=== PATIENT | female | born 1980 | race Caucasian/White ===

== ENCOUNTER → 2016-04-10 | Outpatient (CLI) | payer OTHER ==
[~2016-04-10] MED LIST: CGN1 PO; CITA10TA8 PO; HYDR50CA2 PO; IBUP-1050 PO; IBUP-1451 PO; LEVOIUD IU; METH10CO11 PO; MRP5 PO; MULT-513 PO; NRN600 PO; PROM25TA9 PO
--- NOTE | 2016-04-10 13:38 | DIAGNOSTIC IMAGING REPORT ---
RIGHT FOOT MIN 3 VIEWS ROUTINE CLINICAL HISTORY: Right foot pain status post trauma COMPARISON: None. DISCUSSION: There is a comminuted fracture involving the proximal phalanx of the fifth toe. No additional fractures are visualized. There is no dislocation. There is a plantar calcaneal spur. IMPRESSION: Comminuted minimally displaced fracture involving the proximal phalanx of the fifth toe Electronically signed by: Baron Bates M.D. 04/10/2016 1:37 PM Dictated Date/Time: 04/10/2016 1:35 PM
== END | disposition home or self-care (01) ==
LOC: C.RADPV 12:58
PROVIDERS: ATTEND Family Medicine
DX: S92.511A Displaced fracture of proximal phalanx of right lesser toe(s), initial encounter for closed fracture (principal); X58.XXXA Exposure to other specified factors, initial encounter

== ENCOUNTER 2016-05-11 16:30 | Emergency (ER) | payer OTHER ==
[~2016-05-11] VITALS: Ht 170.2 cm; Wt 90.0 kg
[~2016-05-11 16:30] MED LIST changes: -CGN1 PO; -CITA10TA8 PO; -HYDR50CA2 PO; -IBUP-1050 PO; -LEVOIUD IU; -METH10CO11 PO; -MRP5 PO; -MULT-513 PO; -NRN600 PO; -PROM25TA9 PO
[2016-05-11 16:32] VITALS: TEMP 37; Ht 170.2 cm; Wt 90.0 kg
[2016-05-11] MEDS ORDERED: OXYCODONE/ACETAMINOPHEN 5-325 TAB PO STA (16:48)
[2016-05-11] MEDS ORDERED: ONDANSETRON 4MG OD TAB PO STA (16:48)
--- NOTE | 2016-05-11 17:26 | DIAGNOSTIC IMAGING REPORT ---
LEFT ANKLE MIN 3 VIEWS ROUTINE CLINICAL HISTORY: Foot pain and ankle pain s/p fall trauma. Pain. COMPARISON: None. DISCUSSION: The bones and joint spaces appear intact. There is no evidence of fracture, dislocation or bony disease. There is no evidence for soft tissue swelling. IMPRESSION: Negative study. Electronically signed by: Elan Zapien M.D. 05/11/2016 5:25 PM Dictated Date/Time: 05/11/2016 5:24 PM
--- NOTE | 2016-05-11 17:27 | DIAGNOSTIC IMAGING REPORT ---
LEFT FOOT MIN 3 VIEWS ROUTINE CLINICAL HISTORY: Foot pain and ankle pain s/p fall COMPARISON: None. DISCUSSION: The bones and joint spaces appear intact. There is no evidence of fracture, dislocation or bony disease. There is no evidence for soft tissue swelling. IMPRESSION: Negative study. Electronically signed by: Elan Zapien M.D. 05/11/2016 5:25 PM Dictated Date/Time: 05/11/2016 5:25 PM
--- NOTE | 2016-05-11 17:28 | DIAGNOSTIC IMAGING REPORT ---
RIGHT FOOT MIN 3 VIEWS ROUTINE CLINICAL HISTORY: Foot pain and ankle pain s/p fall Right pain COMPARISON: None. DISCUSSION: Comminuted fracture proximal phalanx fifth toe. This shows partial interval healing compared to the prior exam. Mild associated soft tissue edema. No new or progressive findings. Heel spur is present. There is no evidence for soft tissue swelling. IMPRESSION: Healing fracture proximal phalanx fifth toe. No new or interval finding Electronically signed by: Elan Zapien M.D. 05/11/2016 5:27 PM Dictated Date/Time: 05/11/2016 5:26 PM
--- NOTE | 2016-05-11 17:28 | DIAGNOSTIC IMAGING REPORT ---
RIGHT ANKLE MIN 3 VIEWS ROUTINE CLINICAL HISTORY: Foot pain and ankle pain s/p fall Right pain COMPARISON: None. DISCUSSION: The bones and joint spaces appear intact. There is no evidence of fracture, dislocation or bony disease. There is no evidence for soft tissue swelling. IMPRESSION: Negative study. Electronically signed by: Elan Zapien M.D. 05/11/2016 5:26 PM Dictated Date/Time: 05/11/2016 5:26 PM
--- NOTE | 2016-05-11 17:55 | EMERGENCY ROOM VISIT NOTE ---
History First contact with patient: 16:36 Chief Complaint: FALL Stated Complaint: FELL DOWN STAIRS,BOTH FEET POSSIBLY BROKEN History of Present Illness The patient is a 35 year old female who presents to the Emergency Room via private vehicle accompanied by male binding cutter synthetic cloth with complaints of "fell down stairs, both the possibly broken". The patient states that 3 weeks ago she fell down the steps outside of her apartment, injuring her right foot with fracture. She notes that while trying to favor the other foot yesterday while descending the stairs at her apartment, she tripped on cracks in the cement, and fell injuring her left foot now. She also scraped her head, and did have a headache initially which has now subsided. She notes that when she fell she did not lose consciousness. There is no neck pain. She is waiting upon orthopedic consult for the initial foot injury. She rates the pain and left foot as a 7/10, and feels throbbing and warm. She notes that the pain of the right foot has also worsened. Her tetanus is up-to-date. She also notes a small abrasion to the skin at the anterior ankle joint of the left foot. The zgpk-zio-[id number] medication has not been helping. She feels that she fell because of the poor condition of the steps at her home. Review of Systems A complete 6-point Review of Systems was discussed with the patient, with pertinent positives and negatives listed in the History of Present Illness. All remaining Review of Systems questions can be considered negative unless otherwise specified. Past Medical/Surgical History Medical Problems: (1) Diverticulitis (2) Kidney stone (3) kidney stone (4) Neuropathy (5) Restless legs syndrome (RLS) Surgical Problems: (1) Previous section Family History Cancer Diabetes mellitus Gallbladder disease Heart disease Hypertension Lung disease MS (multiple sclerosis) Seizures Social History Smoking Status: Current Every Day Smoker Alcohol Use: none Drug Use: none Marital Status: in relationship Housing Status: lives with family Occupation Status: unemployed Current/Historical Medications Scheduled Levonorgestrel (Iud) (Mirena), 20 MCG IU UD Methadone Hcl (Methadone Hcl), 1 DOSE PO DAILY Multivitamins/Minerals (Mvi With Minerals), 1 TAB PO DAILY Scheduled PRN Ibuprofen (Advil), 400-600 MG PO Q6H PRN for Pain Allergies Coded Allergies: Morphine (Verified Allergy, Intermediate, Hives; pt tolerated hydromorphone in the past, 02/22/16) Aspirin (Verified Allergy, Unknown, Rash like welts, 02/22/16) Tramadol (Verified Allergy, Unknown, Does not feel well when taken., 02/21) Physical Exam Vital Signs Date Time Temp Pulse Resp B/P Pulse Ox O2 Delivery O2 Flow Rate FiO2 05/11/16 18:21 80 18 128/71 97 05/11/16 16:32 37.0 78 20 132/83 96 Room Air Physical Exam VITAL SIGNS - Vital signs and nursing notes were reviewed. Patient is afebrile , normotensive, non-tachycardic and is saturating well on room air 96%. GENERAL -35-year-old female appearing her stated age who is in no acute distress. Communicates well with provider and answers questions appropriately. SKIN - Without rashes. There is a small abrasion to the anterior ankle joint region, with no active bleeding. HEAD - NC/AT. EYES - Without subconjunctival hemorrhage. Palpebral conjunctiva pink and moist with no injection. EARS - No deformities of external structures noted on gross examination bilaterally. N NOSE - Midline and without cyanosis. No epistaxis or clear watery discharge noted. MOUTH/OROPHARYNX - Without perioral cyanosis. LUNGS - Chest wall symmetric without accessory muscle use, intercostals retractions, or central cyanosis. CTA B/L. No wheezes, rales, or rhonchi appreciated. CARDIAC - RRR with S1/S2. No murmur, rubs, or gallops appreciated. EXTREMITIES - No gross deformities noted of the extremities. There is tenderness to palpation overlying both ankles and feet. Limited range of motion secondary to pain. Neurovascularly intact. +5/5 strength noted in UE/ LE bilaterally. NEUROLOGIC - Cranial nerves II through XII grossly intact. Sensory intact to light touch throughout. PSYCH - Pt is very pleasant and interacts well with examiner. Medical Decision & Procedures ER Provider Diagnostic Interpretation: RIGHT ANKLE MIN 3 VIEWS ROUTINE CLINICAL HISTORY: Foot pain and ankle pain s/p fall Right pain COMPARISON: None. DISCUSSION: The bones and joint spaces appear intact. There is no evidence of fracture, dislocation or bony disease. There is no evidence for soft tissue swelling. IMPRESSION: Negative study. Electronically signed by: Elan Zapien M.D. 05/11/2016 5:26 PM Dictated Date/Time: 05/11/2016 5:26 PM LEFT ANKLE MIN 3 VIEWS ROUTINE CLINICAL HISTORY: Foot pain and ankle pain s/p fall trauma. Pain. COMPARISON: None. DISCUSSION: The bones and joint spaces appear intact. There is no evidence of fracture, dislocation or bony disease. There is no evidence for soft tissue swelling. IMPRESSION: Negative study. Electronically signed by: Elan Zapien M.D. 05/11/2016 5:25 PM Dictated Date/Time: 05/11/2016 5:24 PM RIGHT FOOT MIN 3 VIEWS ROUTINE CLINICAL HISTORY: Foot pain and ankle pain s/p fall Right pain COMPARISON: None. DISCUSSION: Comminuted fracture proximal phalanx fifth toe. This shows partial interval healing compared to the prior exam. Mild associated soft tissue edema. No new or progressive findings. Heel spur is present. There is no evidence for soft tissue swelling. IMPRESSION: Healing fracture proximal phalanx fifth toe. No new or interval finding Electronically signed by: Elan Zapien M.D. 05/11/2016 5:27 PM Dictated Date/Time: 05/11/2016 5:26 PM LEFT FOOT MIN 3 VIEWS ROUTINE CLINICAL HISTORY: Foot pain and ankle pain s/p fall COMPARISON: None. DISCUSSION: The bones and joint spaces appear intact. There is no evidence of fracture, dislocation or bony disease. There is no evidence for soft tissue swelling. IMPRESSION: Negative study. Electronically signed by: Elan Zapien M.D. 05/11/2016 5:25 PM Dictated Date/Time: 05/11/2016 5:25 PM Medications Administered Medications (Trade) Dose Ordered Sig/Ramesh Route Start Time Stop Time Status Last Admin Dose Admin Oxycodone/ Acetaminophen (Percocet 5-325mg Tab) 1 tab NOW STAT PO 05/11/16 16:48 05/11/16 16:51 DC 05/11/16 17:38 1 TAB Ondansetron HCl (Zofran Odt) 4 mg NOW STAT PO 05/11/16 16:48 05/11/16 16:51 DC 05/11/16 17:37 4 MG Oxycodone/ Acetaminophen (Percocet 5/ 325MG Home Pack) 1 homepack UD STAT PO 05/11/16 17:57 05/11/16 17:58 DC 05/11/16 17:57 1 HOMEPACK Medical Decision Patient was seen and evaluated as above. After obtaining a thorough history and physical examination radiographs were obtained of the bilateral ankles and feet. Radiograph results as above. She was given ice packs. She did request something for pain, noting that she could take Percocet without difficulty therefore was given one tablet of this. Radiograph results reveal a healing fracture of the right fifth digit of the foot. Because of her level of pain, I did find it appropriate to provide her with a postop shoe for the right, which will help protect the toe, and gel ankle splint for the left ankle which was not painful. Her wound was cleaned and bandaged. She was also given crutches. She was able to ambulate well with these. She was given a home pack of Percocet. She was educated upon management, and notes that she will follow up with Dr. [facility]. She was educated upon worrisome symptoms in which to return, had questions answered prior to discharge, and was discharged home in good condition. In the evaluation and treatment of this patient, the following differential diagnoses were considered: Ankle Fracture, Ankle Sprain, Distal Fibula Fracture , Distal Tibia Fracture, Foot Fracture, Maisonneuve Fracture, Lisfranc Fracture , Talus Fracture, Tarsal Fracture, Foot Sprain. Impression Primary Impression: Fall Additional Impressions: Contusion of multiple sites Bilateral ankle pain Toe fracture, right Departure Information Dispostion Home / Self-Care Condition GOOD Referrals Marcelo Berkowitz M.D. (PCP) Neo Lundberg M.D. Patient Instructions My [facility] Additional Instructions You have been treated in the Emergency Department for a left and right Ankle/ foot injury. You have received pain medicine in the emergency department which impairs your ability to operate a vehicle. It is illegal for you to drive after receiving these medicines. You have been given a 24 hour supply of percocet to be used for pain control. This is a narcotic medication. You cannot drive or consume alcohol while on this medicine. This medicine should only be used for pain that cannot be controlled with zpyu-smh-rtqkijp pain medicines. For pain control, you can use the following aiir-piu-zqjrtst medicines (if >12 yo): - Regular strength (325mg/tab) Tylenol (acetaminophen) 2 tabs every 4-6 hours as needed. Do not exceed 12 tablets in a 24 hour period. Avoid taking more than 4 grams (4000 mg) of Tylenol per day. This includes any other sources of acetaminophen you may take on a regular basis. DO NOT TAKE THIS WITH THE PERCOCET - Regular strength (200 mg/tab) Advil (ibuprofen) 1-2 tabs every 4-6 hours as needed. Do not exceed a dose of 3200 mg per day. If this is a recent injury (<24 hrs), ice can be applied to the area of pain for the first 3 days to help decrease pain and inflammation. You have been provided the number for an Orthopaedic Surgeon. You should call this number as soon as possible to establish a follow-up visit from today's Emergency Department visit. Keep the ankle brace/splint in place until cleared by Orthopedics. Use the crutches you have been provided to keep ALL weight off of the ankle until weight bearing is tolerable. Return to the Emergency Department if your current symptoms worsen despite treatment course outlined above, or if you develop any of the following symptoms : intractable pain despite aforementioned treatment course or new onset of numbness or tingling of the foot. Problem Qualifiers Primary Impression: Fall Encounter type: initial encounter Qualified Codes: W19.XXXA - Unspecified fall, initial encounter Additional Impressions: Bilateral ankle pain Chronicity: acute Qualified Codes: M25.571 - Pain in right ankle and joints of right foot; M25.572 - Pain in left ankle and joints of left foot Toe fracture, right Encounter type: subsequent encounter Toe: lesser toe Fracture type: closed
[2016-05-11] MEDS ORDERED: PERCOCET HOME PACK PO STA (17:57)
[2016-05-11 18:21] VITALS: BP 128/71; PULSE 80; O2SAT 97
== END 2016-05-11 18:28 | disposition home or self-care (01) ==
LOC: C.EDB 16:32 → C.EDD 18:28
DX: T14.8 Other injury of unspecified body region (principal); M25.571 Pain in right ankle and joints of right foot; M25.572 Pain in left ankle and joints of left foot; S92.912A Unspecified fracture of left toe(s), initial encounter for closed fracture; W19.XXXA Unspecified fall, initial encounter; F17.200 Nicotine dependence, unspecified, uncomplicated

== ENCOUNTER 2016-08-14 15:56 | Emergency (ER) | payer OTHER ==
[~2016-08-14] VITALS: Ht 170.2 cm; Wt 80.9 kg
[2016-08-14 15:59] VITALS: BP 135/80; PULSE 74; TEMP 36.9; O2SAT 97; Ht 170.2 cm; Wt 80.9 kg
[2016-08-14] MEDS ORDERED: ACETAMINOPHEN 500 MG TAB PO STA (16:31)
[2016-08-14] MEDS ORDERED: MULT-513 PO (16:48)
[2016-08-14] MEDS ORDERED: IBUP-1050 PO (16:48)
[2016-08-14] MEDS ORDERED: MRP5 PO (17:03)
[2016-08-14] MEDS ORDERED: NRN600 PO (17:03)
--- NOTE | 2016-08-14 17:04 | DIAGNOSTIC IMAGING REPORT ---
RIGHT FOOT MIN 3 VIEWS ROUTINE CLINICAL HISTORY: lateral foot pain Right pain. Trauma. COMPARISON: 05/11/2016 DISCUSSION: Nondisplaced fracture proximal phalanx fifth toe. This is pre-existing fracture is considered healing. Soft tissue edema. No evidence of dislocation. Heel spur is present. IMPRESSION: Healing fracture proximal phalanx fifth toe. This has been described previously. Soft tissue edema. Heel spur. Electronically signed by: Elan Zapien M.D. 08/14/2016 5:03 PM Dictated Date/Time: 08/14/2016 5:01 PM
--- NOTE | 2016-08-14 17:05 | DIAGNOSTIC IMAGING REPORT ---
RIGHT ANKLE MIN 3 VIEWS ROUTINE CLINICAL HISTORY: lateral ankle pain s/p fall Right trauma. Pain. COMPARISON: 05/11/2016 DISCUSSION: Heel spur. No acute bony abnormality. Ankle mortise is aligned anatomically. There is no evidence for soft tissue swelling. IMPRESSION: Heel spur. No acute bony abnormality. Electronically signed by: Elan Zapien M.D. 08/14/2016 5:04 PM Dictated Date/Time: 08/14/2016 5:03 PM
--- NOTE | 2016-08-14 17:09 | EMERGENCY ROOM VISIT NOTE ---
ED Visit Note First contact with patient: 16:16 CHIEF COMPLAINT: Foot pain, laceration of upper gum HISTORY OF PRESENT ILLNESS: This 35-year-old female patient presents to the emergency department approximately 8 hours after sustaining an injury to her right foot and left upper gum. Patient states she was walking this morning, when she tripped over her right foot, landing on this foot, then causing her denture to cut into her upper gum. She states that the gum is "split in half". Complaining of swelling and pain in the right foot at rest and worse with weight bearing. The patient does report a history of fracture of the fifth phalanx of right foot which "didn't heal properly". The patient rates the pain in her foot as steady and sharp and 8/10. The patient has minimal relief of the pain. The patient is able to walk. No numbness or weakness. Moderate lateral right ankle pain, radiating towards the right lateral foot. There are no lacerations of the foot. The patient is able to move all of their toes and their ankle with minimal pain. REVIEW OF SYSTEMS: GENERAL: A 10 system review of systems was completed with positives and pertinent negatives in the HPI. ALLERGIES: Aspirin, morphine, tramadol MEDICATIONS: Methadone, gabapentin, Celexa PMH: Addiction to narcotics, depression SOCIAL HISTORY: Patient lives locally. She admits to smoking one half pack cigarettes per day. She denies alcohol or drug use. PHYSICAL EXAM: Vital Signs: Reviewed Nurse's notes, vital signs stable. GENERAL : 35-year-old female, in no acute distress, but appears in pain, well-developed , well-nourished. MOUTH: De-gloving injury to mandibular gingival mucosa, no active bleeding at this time. Patient continues to wear dentures, and has to remove them for the exam. MUSCULOSKELATAL: There is no visual deformity of the right foot. There is no erythema or ecchymosis. There is no warmth. There is tenderness and swelling over the lateral aspect of the right foot and fourth and fifth digits. There is no tenderness over the lateral or medial malleolus. No tenderness of the tib/fib. The range of motion of the ankle and foot is mildly limited secondary to pain. There is no tenderness over the plantar fascia. The skin is intact and there are no lacerations or puncture wounds. Dorsalis pedis pulse 2+. Capillary refill less than 2 seconds. EMERGENCY DEPARTMENT COURSE: I examined the patient. Patient was given a dose of Tylenol for pain. An X-ray of the right ankle and foot was reviewed by myself and radiology and reveals Right Ankle X-Ray: DISCUSSION: Heel spur. No acute bony abnormality. Ankle mortise is aligned anatomically. There is no evidence for soft tissue swelling. IMPRESSION: Heel spur. No acute bony abnormality. Right Foot X-Ray: DISCUSSION: Nondisplaced fracture proximal phalanx fifth toe. This is pre-existing fracture is considered healing. Soft tissue edema. No evidence of dislocation. Heel spur is present. IMPRESSION: Healing fracture proximal phalanx fifth toe. This has been described previously. Soft tissue edema. Heel spur. Discussed x-ray results with patient. Evaluated laceration of the upper gingiva , and advised patient to further treatment necessary. The patient has a postop shoe and crutches at home, so I advised her to use these when she gets home. The patient was discharged home in good condition. DIAGNOSIS: Right foot pain with healing fracture of 5th proximal phalynx, Laceration of left upper gum. DIFFERENTIAL DIAGNOSIS: dental pain, right ankle pain, metatarsal fracture, new phalange fracture, ankle sprain, ankle contusion, ankle fracture, and others. DISCHARGE INSTRUCTIONS: Ibuprofen(Motrin, Advil) may be used for fever or pain. Use 600mg every six hours as needed. Take with food. Avoid using more than 2400mg in a 24 hour period. Do not use 2400mg per day for more than three consecutive days without physician direction. Prolonged inappropriate use can lead to stomach upset or ulcers. (AND/OR) Acetaminophen(Tylenol) may be used for fever or pain. Use 1000mg every six hours as needed. Avoid using more than 4000mg in a 24 hour period. Ice compresses for 20 minutes at a time four times daily for 2-3 days. Use the crutches you have at home as instructed. Rest and elevate your injury. Wear the postop shoe you have at home until you follow up with orthopedics. Return to the ER immediately for any numbness, tingling, severe pain, extreme swelling in the extremity or as needed. Call [facility], [phone], tomorrow to arrange follow up for your injury next week. Follow-up with your primary care physician in 2 to 3 days for a recheck of your current condition. Follow-up with your oral surgeon in 2-3 days regarding laceration in mouth. Do not wear your dentures for at least one week, or until follow-up with oral surgeon. Problem List Medical Problems: (1) Diverticulitis Status: Resolved (2) Kidney stone Status: Resolved (3) Neuropathy Status: Chronic (4) Restless legs syndrome (RLS) Status: Chronic Surgical Problems: (1) Previous section Status: Resolved Current/Historical Medications Scheduled Gabapentin (Gabapentin), 600 MG PO TID Levonorgestrel (Iud) (Mirena), 20 MCG IU UD Methadone Hcl (Methadone Hcl), 1 DOSE PO DAILY Multivitamins/Minerals (Mvi With Minerals), 1 TAB PO DAILY Pramipexole Dihydrochloride (Pramipexole Dihydrochlori), 0.5 MG PO DAILY Scheduled PRN Ibuprofen (Advil), 400-600 MG PO Q6H PRN for Pain Allergies Coded Allergies: Morphine (Verified Allergy, Intermediate, Hives; pt tolerated hydromorphone in the past, 02/22/16) Aspirin (Verified Allergy, Unknown, Rash like welts, 02/22/16) Tramadol (Verified Allergy, Unknown, Does not feel well when taken., 02/21) Vital Signs Date Time Temp Pulse Resp B/P (MAP) Pulse Ox O2 Delivery O2 Flow Rate FiO2 08/14/16 15:59 36.9 74 18 135/80 97 Room Air Medications Administered Medications (Trade) Dose Ordered Sig/Ramesh Route Start Time Stop Time Status Last Admin Dose Admin Acetaminophen (Tylenol Tab) 1,000 mg NOW STAT PO 08/14/16 16:31 08/14/16 16:32 DC 08/14/16 17:00 1,000 MG Departure Information Impression Primary Impression: Laceration of upper gingiva without complication Additional Impressions: Right foot pain Fracture of phalanx of toe of right foot with delayed healing Dispostion Home / Self-Care Condition GOOD Referrals No Doctor, Assigned (PCP) Patient Instructions My [facility] Additional Instructions Ibuprofen(Motrin, Advil) may be used for fever or pain. Use 600mg every six hours as needed. Take with food. Avoid using more than 2400mg in a 24 hour period. Do not use 2400mg per day for more than three consecutive days without physician direction. Prolonged inappropriate use can lead to stomach upset or ulcers. (AND/OR) Acetaminophen(Tylenol) may be used for fever or pain. Use 1000mg every six hours as needed. Avoid using more than 4000mg in a 24 hour period. Ice compresses for 20 minutes at a time four times daily for 2-3 days. Use the crutches you have at home as instructed. Rest and elevate your injury. Wear the postop shoe you have at home until you follow up with orthopedics. Return to the ER immediately for any numbness, tingling, severe pain, extreme swelling in the extremity or as needed. Call [facility], [phone], tomorrow to arrange follow up for your injury next week. Follow-up with your primary care physician in 2 to 3 days for a recheck of your current condition. Follow-up with your oral surgeon in 2-3 days regarding laceration in mouth. Do not wear your dentures for at least one week, or until follow-up with oral surgeon. Problem Qualifiers Primary Impression: Laceration of upper gingiva without complication Encounter type: initial encounter Qualified Codes: S01.512A - Laceration without foreign body of oral cavity, initial encounter Additional Impressions: Fracture of phalanx of toe of right foot with delayed healing Encounter type: subsequent encounter Toe: lesser toe Fracture type: closed Phalanx: distal Fracture alignment: nondisplaced Qualified Codes: S92.534G - Nondisplaced fracture of distal phalanx of right lesser toe(s), subsequent encounter for fracture with delayed healing
[2016-08-14] MEDS ORDERED: METH10CO11 PO (18:35)
[2016-08-14] MEDS ORDERED: LEVOIUD IU (18:35)
[2016-10-22] MEDS ORDERED: BENZ-89 PO (23:27)
== END 2016-08-14 17:44 | disposition home or self-care (01) ==
LOC: C.EDB 15:57 → C.EDD 17:44
DX: S92.911A Unspecified fracture of right toe(s), initial encounter for closed fracture (principal); S01.512A Laceration without foreign body of oral cavity, initial encounter; W01.0XXA Fall on same level from slipping, tripping and stumbling without subsequent striking against object, initial encounter; M79.671 Pain in right foot; F32.9 Major depressive disorder, single episode, unspecified; K57.92 Diverticulitis of intestine, part unspecified, without perforation or abscess without bleeding; F17.200 Nicotine dependence, unspecified, uncomplicated; Z87.81 Personal history of (healed) traumatic fracture; Z87.442 Personal history of urinary calculi; Z79.899 Other long term (current) drug therapy; Z88.5 Allergy status to narcotic agent; Z88.6 Allergy status to analgesic agent; Z88.8 Allergy status to other drugs, medicaments and biological substances

== ENCOUNTER 2016-10-22 22:56 | Emergency (ER) | payer OTHER ==
[~2016-10-22] VITALS: Ht 170.2 cm; Wt 76.1 kg
[~2016-10-22 22:56] MED LIST changes: +IBUP-1050 PO; -IBUP-1451 PO; +LEVOIUD IU; +METH10CO11 PO; +MRP5 PO; +MULT-513 PO; +NRN600 PO
[2016-10-22 23:00] VITALS: Ht 170.2 cm; Wt 76.1 kg
[2016-10-22 23:25] VITALS: TEMP 36.8
[2016-10-22] MEDS ORDERED: PROM25TA9 PO (23:26)
[2016-10-22] MEDS ORDERED: HYDR50CA2 PO (23:26)
[2016-10-22] MEDS ORDERED: CITA10TA8 PO (23:26)
[2016-10-22] MEDS ORDERED: CGN1 PO (23:27)
[2016-10-23] MEDS ORDERED: AZITHROMYCIN 250 MG TAB PO STA (01:11)
[2016-10-23] MEDS ORDERED: CEFTRIAXONE SOD 350MG/ML 1 GM VIAL IM ONE (01:15)
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
[2016-10-23 02:15] VITALS: BP 139/100; PULSE 73; O2SAT 99
--- NOTE | 2016-10-23 06:42 | DIAGNOSTIC IMAGING REPORT ---
C-SPINE ROUTINE 4 OR 5 VIEWS CLINICAL HISTORY: Neck pain status post trauma COMPARISON STUDY: No previous studies for comparison. FINDINGS: There is a slight reversal of the normal cervical lordosis. No fractures or subluxations are visualized. The prevertebral soft tissues are normal. There is a mild cervical dextroscoliosis. IMPRESSION: Slight reversal of the normal cervical lordosis. No fractures or subluxations identified. Electronically signed by: Baron Bates M.D. 10/23/2016 6:41 AM Dictated Date/Time: 10/23/2016 6:40 AM
== END 2016-10-23 02:15 | disposition home or self-care (01) ==
LOC: C.EDB 22:58
DX: T76.21XA Adult sexual abuse, suspected, initial encounter (principal); S13.4XXA Sprain of ligaments of cervical spine, initial encounter; S70.11XA Contusion of right thigh, initial encounter; X58.XXXA Exposure to other specified factors, initial encounter; F41.9 Anxiety disorder, unspecified; F32.9 Major depressive disorder, single episode, unspecified; F17.200 Nicotine dependence, unspecified, uncomplicated; G62.9 Polyneuropathy, unspecified; G25.81 Restless legs syndrome; Z87.442 Personal history of urinary calculi; Z83.3 Family history of diabetes mellitus; Z82.49 Family history of ischemic heart disease and other diseases of the circulatory system; Z82.0 Family history of epilepsy and other diseases of the nervous system

== ENCOUNTER 2017-03-19 16:48 | Emergency (ER) | payer OTHER ==
[~2017-03-19] VITALS: Ht 170.2 cm; Wt 77.8 kg
[~2017-03-19 16:48] MED LIST changes: +BENZ-89 PO; +CITA10TA8 PO; -LEVOIUD IU; -NRN600 PO; +PROM25TA9 PO
[2017-03-19 16:59] VITALS: TEMP 36.7; Ht 170.2 cm; Wt 77.8 kg
[2017-03-19] MEDS ORDERED: NRN600 PO (17:03)
[2017-03-19] MEDS ORDERED: ONDANSETRON INJ 2 MG/ML 2 ML VIAL IV STA (17:13)
[2017-03-19] MEDS ORDERED: SODIUM CHLORIDE 0.9% 1000ML 1,000 ML IV STA (17:13)
[2017-03-19] MEDS ORDERED: KETOROLAC TROMETHAMINE 30 MG/ML VIAL IV STA (17:13)
[2017-03-19] MEDS ORDERED: ZOLP10TA6 PO (17:17)
[2017-03-19] MEDS ORDERED: PPTBS PO (17:17)
[2017-03-19] MEDS ORDERED: PROM25TA16 PO (17:17)
[2017-03-19] MEDS ORDERED: RTL10 PO (17:17)
[2017-03-19] MEDS ORDERED: BENZ0.5T2 PO (17:17)
[2017-03-19] MEDS ORDERED: CITA40TA4 PO (17:17)
--- NOTE | 2017-03-19 17:19 | EMERGENCY ROOM VISIT NOTE ---
History Report prepared by Parker: Oumar Dutta Under the Supervision of: Dr. Lala Blandon M.D. First contact with patient: 17:11 Chief Complaint: ABDOMINAL PAIN Stated Complaint: PAIN LOWER LEFT SIDE, SEVERE NAUSEA Nursing Triage Summary: lower abd pain History of Present Illness The patient is a 36 year old female who presents to the Emergency Room with complaints of constant nausea starting 1.5 weeks ago. The patient states she has been experiencing nausea for the past 1.5 weeks and developed lower left side discomfort yesterday. She reports she has a history of diverticulitis, and her symptoms feel similar to before. The patient notes her last bowel movement was 4-5 days ago. She states she also started sweating earlier today and vomited 5 hours ago. The patient denies fevers and the chance of being . She reports she tried taking ibuprofen earlier today, but it increased her nausea. Source of History: patient Onset: 1.5 weeks ago Position: other (global) Quality: other (nausea) Timing: constant Associated Symptoms: + vomiting, No fevers Note: Associated symptoms: sweating, left sided discomfort Denies: chance of being Review of Systems See HPI for pertinent positives & negatives. A total of 10 systems reviewed and were otherwise negative. Past Medical & Surgical Medical Problems: (1) Diverticulitis (2) Kidney stone (3) kidney stone (4) Neuropathy (5) Restless legs syndrome (RLS) Surgical Problems: (1) Previous section Family History Cancer Diabetes mellitus Gallbladder disease Heart disease Hypertension Lung disease MS (multiple sclerosis) Seizures Social History Smoking Status: Current Every Day Smoker Alcohol Use: none Drug Use: other Housing Status: lives alone Occupation Status: unemployed Current/Historical Medications Scheduled Benztropine Mesylate (Cogentin), 0.5 MG PO BID Bismuth Subsalicylate (Pepto-Bismol Susp), 1 DOSE PO PRN UD Citalopram (Citalopram Hydrobromide), 40 MG PO DAILY Citalopram Hydrobromide (Celexa), 1 TAB PO BID Gabapentin (Gabapentin), 600 MG PO TID Levonorgestrel (Iud) (Mirena), 20 MCG IU UD Methadone Hcl (Methadone Hcl), 1 DOSE PO DAILY Methylphenidate HCl (Methylphenidate HCl), 10 MG PO BID Multivitamins/Minerals (Mvi With Minerals), 1 TAB PO DAILY Promethazine HCl (Promethazine HCl), 25 MG PO Q4 Zolpidem Tartrate (Zolpidem Tartrate), 10 MG PO HS Scheduled PRN Benztropine Mesylate (Benztropine Mesylate), 0.5 MG PO BID PRN for Hydroxyzine Pamoate (Vistaril), 50 MG PO TID PRN for Anxiety Ibuprofen (Advil), 400-600 MG PO Q6H PRN for Pain Allergies Coded Allergies: Morphine (Verified Allergy, Intermediate, Hives; pt tolerated hydromorphone in the past, 10/22/16) Aspirin (Verified Allergy, Unknown, Rash like welts, 10/22/16) Tramadol (Verified Allergy, Unknown, Does not feel well when taken., ) Physical Exam Vital Signs Date Time Temp Pulse Resp B/P (MAP) Pulse Ox O2 Delivery O2 Flow Rate FiO2 03/19/17 19:03 61 20 104/77 100 Room Air 03/19/17 16:59 36.7 74 16 121/79 100 Room Air Physical Exam Vital signs reviewed. General: Well-appearing 36 year old female, in no significant distress. HEENT: No scleral icterus, PERRLA, neck supple. Atraumatic. Cardiovascular: Regular rate and rhythm, no extra sounds. Pulmonary: Clear to auscultation bilaterally, normal work of breathing. Abdomen: Soft, mild tenderness, distended, positive bowel sounds. No tympani to percussion Musculoskeletal: Atraumatic, no peripheral edema. Neurologic: Patient awake alert and oriented x 3 Skin: Warm, dry, no rash Medical Decision & Procedures ER Provider Diagnostic Interpretation: X-ray results as stated below per interpretation by me and the radiologist: K[place] CLINICAL HISTORY: abd distention, lower abd pain COMPARISON STUDY: No previous studies for comparison. FINDINGS: Increased fecal load throughout the colon consistent with fecal stasis. No evidence for fecal impaction within the rectosigmoid region. Intrauterine device in position. IMPRESSION: Increased fecal load throughout the entire colon consistent with fecal stasis. The above report was generated using voice recognition software. It may contain grammatical, syntax or spelling errors. Electronically signed by: Elan Zapien M.D. 03/19/2017 6:18 PM Dictated Date/Time: 03/19/2017 6:17 PM Laboratory Results 03/19/17 17:40 Red Blood Count 4.30, Mean Corpuscular Volume 92.3, Mean Corpuscular Hemoglobin 31.9, Mean Corpuscular Hemoglobin Concent 34.5, Mean Platelet Volume 9.0, Neutrophils (%) (Auto) 57.1, Lymphocytes (%) (Auto) 36.4, Monocytes (%) (Auto) 4.1, Eosinophils (%) (Auto) 2.0, Basophils (%) (Auto) 0.2, Neutrophils # (Auto) 5.74, Lymphocytes # (Auto) 3.65, Monocytes # (Auto) 0.41, Eosinophils # (Auto) 0.20, Basophils # (Auto) 0.02 03/19/17 17:40 Test 03/19/17 17:15 03/19/17 17:40 Urine Color YELLOW Urine Appearance CLEAR (CLEAR) Urine pH 6.5 (4.5-7.5) Urine Specific [place] 1.028 (1.000-1.030) Urine Protein NEG (NEG) Urine Glucose (UA) NEG (NEG) Urine Ketones NEG (NEG) Urine Occult Blood NEG (NEG) Urine Nitrite NEG (NEG) Urine Bilirubin NEG (NEG) Urine Urobilinogen NEG (NEG) Urine Leukocyte Esterase NEG (NEG) Urine Test NEG (NEG) White Blood Count 10.04 K/uL (4.8-10.8) Red Blood Count 4.30 M/uL (4.2-5.4) Hemoglobin 13.7 g/dL (12.0-16.0) Hematocrit 39.7 % (37-47) Mean Corpuscular Volume 92.3 fL (80-100) Mean Corpuscular Hemoglobin 31.9 pg (25-34) Mean Corpuscular Hemoglobin Concent 34.5 g/dl (32-36) Platelet Count 325 K/uL (130-400) Mean Platelet Volume 9.0 fL (7.4-10.4) Neutrophils (%) (Auto) 57.1 % Lymphocytes (%) (Auto) 36.4 % Monocytes (%) (Auto) 4.1 % Eosinophils (%) (Auto) 2.0 % Basophils (%) (Auto) 0.2 % Neutrophils # (Auto) 5.74 K/uL (1.4-6.5) Lymphocytes # (Auto) 3.65 K/uL (1.2-3.4) Monocytes # (Auto) 0.41 K/uL (0.11-0.59) Eosinophils # (Auto) 0.20 K/uL (0-0.5) Basophils # (Auto) 0.02 K/uL (0-0.2) RDW Standard Deviation 41.3 fL (36.4-46.3) RDW Coefficient of Variation 12.3 % (11.5-14.5) Immature Granulocyte % (Auto) 0.2 % Immature Granulocyte # (Auto) 0.02 K/uL (0.00-0.02) Anion Gap 6.0 mmol/L (3-11) Est Creatinine Clear Calc Drug Dose 94.2 ml/min Estimated GFR () 97.9 Estimated GFR (Non- 84.5 BUN/Creatinine Ratio 12.1 (10-20) Calcium Level 9.0 mg/dl (8.5-10.1) Total Bilirubin 0.5 mg/dl (0.2-1) Direct Bilirubin < 0.1 mg/dl (0-0.2) Aspartate Amino Transf (AST/SGOT) 13 U/L (15-37) Alanine Aminotransferase (ALT/SGPT) 16 U/L (12-78) Alkaline Phosphatase 67 U/L (45-117) Total Protein 7.7 gm/dl (6.4-8.2) Albumin 4.1 gm/dl (3.4-5.0) Lipase 113 U/L (73-393) Laboratory results per my review. Medications Administered Medications (Trade) Dose Ordered Sig/Ramesh Route Start Time Stop Time Status Last Admin Dose Admin Ondansetron HCl (Zofran Inj) 4 mg NOW STAT IV 03/19/17 17:13 03/19/17 17:17 DC 03/19/17 17:45 4 MG Ketorolac Tromethamine (Toradol Inj) 30 mg NOW STAT IV 03/19/17 17:13 03/19/17 17:17 DC 03/19/17 17:45 30 MG Bisacodyl (Dulcolax Supp) 10 mg NOW STAT [place] 03/19/17 18:20 03/19/17 18:21 DC 03/19/17 19:29 10 MG Magnesium Citrate (Citrate Of Magnesia Soln) 150 ml NOW STAT PO 03/19/17 18:20 03/19/17 18:21 DC 03/19/17 19:29 150 ML Promethazine HCl (Phenergan Tab) 25 mg NOW ONCE PO 03/19/17 19:15 03/19/17 19:17 DC 03/19/17 19:29 25 MG ED Course 171: Past medical records reviewed. The patient was evaluated in room B10. A complete history and physical examination was performed. 1713: Ordered Toradol Inj 30mg IV, Ondansetron HCl 4mg IV, Sodium Chloride 1000 ml @ 999 mls/hr IV 1820: Ordered Magnesium Citrate 150ml PO, Bisacodyl 10mg [place] 1914: Ordered Promethazine HCl 25 mg PO 1928: Upon reevaluation, the patient appeared to have improvement of her symptoms. I discussed findings with her. She verbalized agreement of the treatment plan. The patient was discharged home. Medical Decision Differential diagnosis: Etiologies such as appendicitis, diverticulitis, PUD, biliary pathology, UTI, pancreatitis, obstruction, mesenteric ischemia, aortic pathology, infections, inflammatory bowel disease, renal colic, ectopic , ovarian cyst, as well as others were entertained. This pt was evaluated and appeared to be in no distress. IV access was obtained and lab work was drawn. Pt was given IV zofran for nausea and toradol for pain. Abd XR reveals constipation. Pt was given a dulolax supp and mag citrate. She will begin miralax if this is not successful. She was advised to increase the fiber and water in her diet. Pt will fu with PCP this week and return to the ED for worsening of symptoms or any medical concerns. Impression Primary Impression: Constipation Scribe Attestation The scribe's documentation has been prepared under my direction and personally reviewed by me in its entirety. I confirm that the note above accurately reflects all work, treatment, procedures, and medical decision making performed by me. Departure Information Dispostion Home / Self-Care Referrals No Doctor, Assigned (PCP) Forms Call Back Authorization, HOME CARE DOCUMENTATION FORM, IMPORTANT VISIT INFORMATION Patient Instructions My [facility] Additional Instructions Diagnosis: Constipation Increase the fiber and water in your diet. MiraLAX 1 capful every 8 hours as needed until you have a bowel movement. Continue MiraLAX once daily as needed. Follow-up with your physician for reevaluation this week. Return to the ER for worsening of symptoms or any medical concerns.
[2017-03-19 17:48] LABS: BASO % 0.2 %; BASO ABS # 0.02 K/uL (0-0.2); HEMATOCRIT 39.7 % (37-47); HEMOGLOBIN 13.7 g/dL (12.0-16.0); IG# 0.02 K/uL (0.00-0.02); LYMPH % 36.4 %; LYMPH ABS # 3.65 K/uL (1.2-3.4); MEAN CELL VOLUME 92.3 fL (80-100); MEAN CORPUSCULAR HEMOGLOBIN 31.9 pg (25-34); MEAN CORPUSCULAR HGB CONC 34.5 g/dl (32-36); MONO % 4.1 %; MONO ABS # 0.41 K/uL (0.11-0.59); NEUT % 57.1 %; NEUT ABS # 5.74 K/uL (1.4-6.5); PLATELET COUNT 325 K/uL (130-400); RED CELL DISTRIBUTION WIDTH CV 12.3 % (11.5-14.5); RED CELL DISTRIBUTION WIDTH SD 41.3 fL (36.4-46.3); WHITE BLOOD COUNT 10.04 K/uL (4.8-10.8)
[2017-03-19 18:10] LABS: ALBUMIN 4.1 gm/dl (3.4-5.0); ALT/SGPT 16 U/L (12-78); BLOOD UREA NITROGEN 11 mg/dl (7-18); CARBON DIOXIDE 29 mmol/L (21-32); CREATININE 0.87 mg/dl (0.60-1.20); GLUCOSE 71 mg/dl (70-99); LIPASE 113 U/L (73-393); POTASSIUM 3.6 mmol/L (3.5-5.1); SODIUM 133 mmol/L (136-145)
[2017-03-19 18:13] LABS: ALKALINE PHOSPHATASE 67 U/L (45-117); AST/SGOT 13 U/L (15-37); TOTAL PROTEIN 7.7 gm/dl (6.4-8.2)
--- NOTE | 2017-03-19 18:19 | DIAGNOSTIC IMAGING REPORT ---
KUB CLINICAL HISTORY: abd distention, lower abd pain COMPARISON STUDY: No previous studies for comparison. FINDINGS: Increased fecal load throughout the colon consistent with fecal stasis. No evidence for fecal impaction within the rectosigmoid region. Intrauterine device in position. IMPRESSION: Increased fecal load throughout the entire colon consistent with fecal stasis. The above report was generated using voice recognition software. It may contain grammatical, syntax or spelling errors. Electronically signed by: Elan Zapien M.D. 03/19/2017 6:18 PM Dictated Date/Time: 03/19/2017 6:17 PM
[2017-03-19] MEDS ORDERED: MAGNESIUM CITRATE 296 ML/BTL PO STA (18:20)
[2017-03-19] MEDS ORDERED: BISACODYL 10 MG SUPP PR STA (18:20)
[2017-03-19] MEDS ORDERED: LEVO1IUD2 IU (18:35)
[2017-03-19 19:03] VITALS: BP 104/77; PULSE 61; O2SAT 100
[2017-03-19] MEDS ORDERED: PROMETHAZINE HCL 25 MG TAB PO ONE (19:15)
[2017-03-19] MEDS ORDERED: HYDR50CA2 PO (23:26)
== END 2017-03-19 19:25 | disposition home or self-care (01) ==
LOC: C.EDB 16:50
DX: K59.00 Constipation, unspecified (principal); Z87.442 Personal history of urinary calculi; G62.9 Polyneuropathy, unspecified; G25.81 Restless legs syndrome; Z80.9 Family history of malignant neoplasm, unspecified; Z83.3 Family history of diabetes mellitus; Z82.49 Family history of ischemic heart disease and other diseases of the circulatory system; Z82.0 Family history of epilepsy and other diseases of the nervous system; F17.210 Nicotine dependence, cigarettes, uncomplicated; Z79.899 Other long term (current) drug therapy

== ENCOUNTER 2017-03-26 20:00 | Emergency (ER) | payer OTHER ==
[~2017-03-26] VITALS: Ht 170.2 cm; Wt 75.9 kg
[~2017-03-26 20:00] MED LIST changes: +BENZ0.5T2 PO; +CITA40TA4 PO; +HYDR50CA2 PO; +LEVO1IUD2 IU; -MRP5 PO; +NRN600 PO; +PPTBS PO; +PROM25TA16 PO; -PROM25TA9 PO; +RTL10 PO; +ZOLP10TA6 PO
[2017-03-26 20:13] VITALS: TEMP 36.4; Ht 170.2 cm; Wt 75.9 kg
[2017-03-26] MEDS ORDERED: CITA40TA12 PO (21:23)
[2017-03-26] MEDS ORDERED: PROCHLORPERAZINE 5 MG/ML 2 ML VIAL IV STA (21:40)
[2017-03-26] MEDS ORDERED: DiphenhydrAMINE HCL 50 MG/ML VIAL IV STA (21:40)
[2017-03-26] MEDS ORDERED: KETOROLAC TROMETHAMINE 30 MG/ML VIAL IV STA (21:40)
[2017-03-26] MEDS ORDERED: OPTIRAY 320 IV PRN (21:45)
[2017-03-26] MEDS ORDERED: SODIUM CHLORIDE 0.9% 1000ML 1,000 ML IV ONE (21:45)
[2017-03-26 22:12] LABS: BASO % 0.2 %; BASO ABS # 0.02 K/uL (0-0.2); EOS % 2.4 %; EOS ABS # 0.19 K/uL (0-0.5); HEMATOCRIT 41.5 % (37-47); HEMOGLOBIN 14.2 g/dL (12.0-16.0); IG# 0.01 K/uL (0.00-0.02); LYMPH % 48.4 %; MEAN CELL VOLUME 91.6 fL (80-100); MEAN CORPUSCULAR HEMOGLOBIN 31.3 pg (25-34); MEAN CORPUSCULAR HGB CONC 34.2 g/dl (32-36); MEAN PLATELET VOLUME 9.4 fL (7.4-10.4); MONO % 4.8 %; MONO ABS # 0.39 K/uL (0.11-0.59); NEUT % 44.1 %; NEUT ABS # 3.54 K/uL (1.4-6.5); PLATELET COUNT 334 K/uL (130-400); RED CELL DISTRIBUTION WIDTH SD 40.7 fL (36.4-46.3); WHITE BLOOD COUNT 8.05 K/uL (4.8-10.8)
[2017-03-26 22:31] LABS: ALBUMIN 4.1 gm/dl (3.4-5.0); CALCIUM 9.4 mg/dl (8.5-10.1); CREATININE 0.92 mg/dl (0.60-1.20); POTASSIUM 4.2 mmol/L (3.5-5.1)
[2017-03-26 22:33] LABS: TOTAL PROTEIN 7.8 gm/dl (6.4-8.2)
[2017-03-27] MEDS ORDERED: MAGNESIUM CITRATE 296 ML/BTL PO ONE (01:30)
[2017-03-27 01:36] VITALS: BP 104/71; PULSE 60; O2SAT 97
--- NOTE | 2017-03-27 06:51 | DIAGNOSTIC IMAGING REPORT ---
CT ABD/PELVIS IV AND ORAL CONT CLINICAL HISTORY: Persistent abdominal pain x7 days COMPARISON STUDY: 02/22/2016 TECHNIQUE: Following the IV administration of 93 mL of Optiray-320, CT scan of the abdomen and pelvis was performed from the lung bases to the proximal femurs. Images are reviewed in the axial, sagittal, and coronal planes. IV contrast was administered without complication. A dose lowering technique was utilized adhering to the principles of ALARA. CT DOSE: 378.15 mGy.cm FINDINGS: Lower chest: There are trace bilateral pleural effusions. There are bibasilar opacities, likely atelectatic. Liver: No focal hepatic masses are visualized. There is mild prominence of the central intrahepatic ducts. Gallbladder: Unremarkable. Spleen: Normal in size and attenuation. Pancreas: Unremarkable. Adrenal glands: Unremarkable. Kidneys: There is symmetric renal cortical enhancement. The kidneys are normal in size without hydronephrosis. Bowel: There are no transition zones indicate bowel obstruction. The appendix appears normal. There is no acute diverticulitis. Peritoneum: There is no intraperitoneal free air or abdominal ascites. Vasculature: The abdominal aorta is normal in course and caliber. Adenopathy: None. Pelvic viscera: There is an indwelling IUD present. Skeletal structures: There is right-sided sacroiliitis. IMPRESSION: 1. No evidence of bowel obstruction. No evidence of free air 2. Normal appendix 3. No evidence of acute diverticulitis 4. IUD within the uterus 5. Sacroiliitis 6. Mild central intrahepatic biliary ductal prominence Electronically signed by: Baron Bates M.D. 03/27/2017 6:50 AM Dictated Date/Time: 03/27/2017 6:47 AM
--- NOTE | 2017-03-30 16:14 | EMERGENCY ROOM VISIT NOTE ---
History First contact with patient: 21:28 Chief Complaint: ABDOMINAL PAIN Stated Complaint: NAUSEA,VOMITING,BODY ACHES,ABD PAIN Nursing Triage Summary: pt c/o abd pain "since i was here last week. they told me i was constipated but i'm not." reports increase of pain, left lower abd and nausea. pt alert, falls asleep easily. breathing WNL. History of Present Illness The patient is a 36 year old female who presents to the Emergency Room with complaints of nausea, vomiting, and abdominal pain for the past 1-2 weeks. The patient was initially seen here in this ED for this complaint where blood work and xrays were suggestive of constipation. The patient took magnesium citrate at home, and states she had a normal bowel movement. She has not had fever or chills. No recent travel history. She denies . Her discomfort is rated a 10/10 and is not relieved with her methadone at home. Review of Systems More than 10 systems were reviewed and otherwise negative with the exception of history of present illness. Past Medical/Surgical History Medical Problems: (1) Diverticulitis (2) Kidney stone (3) kidney stone (4) Neuropathy (5) Restless legs syndrome (RLS) Surgical Problems: (1) Previous section Family History Cancer Diabetes mellitus Gallbladder disease Heart disease Hypertension Lung disease MS (multiple sclerosis) Seizures Social History Smoking Status: Current Every Day Smoker Alcohol Use: none Drug Use: other Housing Status: lives alone Occupation Status: unemployed Current/Historical Medications Scheduled Benztropine Mesylate (Cogentin), 0.5 MG PO BID Bismuth Subsalicylate (Pepto-Bismol Susp), 1 DOSE PO PRN UD Citalopram (Citalopram Hydrobromide), 40 MG PO DAILY Citalopram Hydrobromide (Celexa), 40 MG PO DAILY Gabapentin (Gabapentin), 600 MG PO TID Levonorgestrel (Iud) (Mirena), 20 MCG IU UD Methadone Hcl (Methadone Hcl), 1 DOSE PO DAILY Methylphenidate HCl (Methylphenidate HCl), 10 MG PO BID Multivitamins/Minerals (Mvi With Minerals), 1 TAB PO DAILY Promethazine HCl (Promethazine HCl), 25 MG PO Q4 Zolpidem Tartrate (Zolpidem Tartrate), 10 MG PO HS Scheduled PRN Benztropine Mesylate (Benztropine Mesylate), 0.5 MG PO BID PRN for Hydroxyzine Pamoate (Vistaril), 50 MG PO TID PRN for Anxiety Ibuprofen (Advil), 400-600 MG PO Q6H PRN for Pain Allergies Coded Allergies: Morphine (Verified Allergy, Intermediate, Hives; pt tolerated hydromorphone in the past, 10/22/16) Aspirin (Verified Allergy, Unknown, Rash like welts, 10/22/16) Tramadol (Verified Allergy, Unknown, Does not feel well when taken., ) Physical Exam Vital Signs Date Time Temp Pulse Resp B/P (MAP) Pulse Ox O2 Delivery O2 Flow Rate FiO2 03/27/17 01:36 60 18 104/71 97 03/27/17 00:11 65 18 107/67 96 Room Air 03/26/17 22:16 62 16 117/65 100 Room Air 03/26/17 20:13 36.4 57 16 126/85 97 Room Air Physical Exam VITALS: Vitals are noted on the nurse's note and reviewed by myself. Vital signs stable. GENERAL: Well-developed, well-nourished, white female, who is in no acute distress and resting comfortably. Patient is cooperative with the examination. HEAD: Normocephalic atraumatic. EARS: External ear normal. External auditory canals clear, tympanic membranes pearly bhatti without erythema or effusion bilaterally. EYES: Pupils equal round and reactive to light and accommodation. Conjunctivae without injection, sclerae without icterus. Extraocular movements intact. NOSE: Patent, turbinates without inflammation or discharge. MOUTH: Mucous membranes moist. Tonsils are not enlarged. Pharynx without erythema, blood, or exudate. Uvula midline. Airway patent. NECK: Supple without nuchal rigidity. No lymphadenopathy. No thyromegaly. Cervical spine is nontender. HEART: Regular rate and rhythm without murmurs gallops or rubs. LUNGS: Clear to auscultation bilaterally without wheezes, rales or rhonchi. No retractions or accessory muscle use. ABDOMEN: Positive normal bowel sounds x 4. Soft, nontender, without masses or organomegaly. No guarding or rebound tenderness. MUSCULOSKELETAL: No muscle atrophy, erythema, or edema noted. Full range of motion without joint tenderness in all extremities. Medical Decision & Procedures ER Provider Diagnostic Interpretation: CT ABD/PELVIS IV AND ORAL CONT CLINICAL HISTORY: Persistent abdominal pain x7 days COMPARISON STUDY: 02/22/2016 TECHNIQUE: Following the IV administration of 93 mL of Optiray-320, CT scan of the abdomen and pelvis was performed from the lung bases to the proximal femurs. Images are reviewed in the axial, sagittal, and coronal planes. IV contrast was administered without complication. A dose lowering technique was utilized adhering to the principles of ALARA. CT DOSE: 378.15 mGy.cm FINDINGS: Lower chest: There are trace bilateral pleural effusions. There are bibasilar opacities, likely atelectatic. Liver: No focal hepatic masses are visualized. There is mild prominence of the central intrahepatic ducts. Gallbladder: Unremarkable. Spleen: Normal in size and attenuation. Pancreas: Unremarkable. Adrenal glands: Unremarkable. Kidneys: There is symmetric renal cortical enhancement. The kidneys are normal in size without hydronephrosis. Bowel: There are no transition zones indicate bowel obstruction. The appendix appears normal. There is no acute diverticulitis. Peritoneum: There is no intraperitoneal free air or abdominal ascites. Vasculature: The abdominal aorta is normal in course and caliber. Adenopathy: None. Pelvic viscera: There is an indwelling IUD present. Skeletal structures: There is right-sided sacroiliitis. IMPRESSION: 1. No evidence of bowel obstruction. No evidence of free air 2. Normal appendix 3. No evidence of acute diverticulitis 4. IUD within the uterus 5. Sacroiliitis 6. Mild central intrahepatic biliary ductal prominence Laboratory Results 03/26/17 21:55 Red Blood Count 4.53, Mean Corpuscular Volume 91.6, Mean Corpuscular Hemoglobin 31.3, Mean Corpuscular Hemoglobin Concent 34.2, Mean Platelet Volume 9.4, Neutrophils (%) (Auto) 44.1, Lymphocytes (%) (Auto) 48.4, Monocytes (%) (Auto) 4.8, Eosinophils (%) (Auto) 2.4, Basophils (%) (Auto) 0.2, Neutrophils # (Auto) 3.54, Lymphocytes # (Auto) 3.90, Monocytes # (Auto) 0.39, Eosinophils # (Auto) 0.19, Basophils # (Auto) 0.02 03/26/17 21:55 Test 03/26/17 21:55 1/18/18 22:17 White Blood Count 8.05 K/uL (4.8-10.8) Red Blood Count 4.53 M/uL (4.2-5.4) Hemoglobin 14.2 g/dL (12.0-16.0) Hematocrit 41.5 % (37-47) Mean Corpuscular Volume 91.6 fL (80-100) Mean Corpuscular Hemoglobin 31.3 pg (25-34) Mean Corpuscular Hemoglobin Concent 34.2 g/dl (32-36) Platelet Count 334 K/uL (130-400) Mean Platelet Volume 9.4 fL (7.4-10.4) Neutrophils (%) (Auto) 44.1 % Lymphocytes (%) (Auto) 48.4 % Monocytes (%) (Auto) 4.8 % Eosinophils (%) (Auto) 2.4 % Basophils (%) (Auto) 0.2 % Neutrophils # (Auto) 3.54 K/uL (1.4-6.5) Lymphocytes # (Auto) 3.90 K/uL (1.2-3.4) Monocytes # (Auto) 0.39 K/uL (0.11-0.59) Eosinophils # (Auto) 0.19 K/uL (0-0.5) Basophils # (Auto) 0.02 K/uL (0-0.2) RDW Standard Deviation 40.7 fL (36.4-46.3) RDW Coefficient of Variation 12.0 % (11.5-14.5) Immature Granulocyte % (Auto) 0.1 % Immature Granulocyte # (Auto) 0.01 K/uL (0.00-0.02) Anion Gap 6.0 mmol/L (3-11) Est Creatinine Clear Calc Drug Dose 88.1 ml/min Estimated GFR () 91.5 Estimated GFR (Non- 79.0 BUN/Creatinine Ratio 10.4 (10-20) Calcium Level 9.4 mg/dl (8.5-10.1) Total Bilirubin 0.5 mg/dl (0.2-1) Aspartate Amino Transf (AST/SGOT) 15 U/L (15-37) Alanine Aminotransferase (ALT/SGPT) 15 U/L (12-78) Alkaline Phosphatase 65 U/L (45-117) Total Protein 7.8 gm/dl (6.4-8.2) Albumin 4.1 gm/dl (3.4-5.0) Globulin 3.7 gm/dl (2.5-4.0) Albumin/Globulin Ratio 1.1 (0.9-2) Lipase 96 U/L (73-393) Chemistry Specimen Hemolysis Urine Color YELLOW Urine Appearance CLOUDY (CLEAR) Urine pH 6.0 (4.5-7.5) Urine Specific [place] 1.022 (1.000-1.030) Urine Protein NEG (NEG) Urine Glucose (UA) NEG (NEG) Urine Ketones NEG (NEG) Urine Occult Blood NEG (NEG) Urine Nitrite NEG (NEG) Urine Bilirubin NEG (NEG) Urine Urobilinogen NEG (NEG) Urine Leukocyte Esterase SMALL (NEG) Urine WBC (Auto) >30 /hpf (0-5) Urine RBC (Auto) 0-4 /hpf (0-4) Urine Hyaline Casts (Auto) 1-5 /lpf (0-5) Urine Epithelial Cells (Auto) >30 /lpf (0-5) Urine Bacteria (Auto) 2+ (NEG) Urine Opiates Screen NEG (NEG) Urine Methadone, Qualitative POS (NEG) Urine Methadone Metabolites 9460 NG/ML (SCOZGF=539) Urine Methadone Confirm 2160 NG/ML (EIITDX=412) Urine Barbiturates NEG (NEG) Urine Phencyclidine (PCP) Level NEG (NEG) Ur Amphetamine/Methamphetamine NEG (NEG) MDMA (Ecstasy) Screen NEG (NEG) Urine Benzodiazepines Screen NEG (NEG) Urine Cocaine Metabolite NEG (NEG) Urine Marijuana (THC) NEG (NEG) Date/Time Source Procedure Growth Status 03/26/17 22:17 Urine , Clean Catch Urine Culture - Final [place]-Like Bacilli Complete Medications Administered Medications (Trade) Dose Ordered Sig/Ramesh Route Start Time Stop Time Status Last Admin Dose Admin Ketorolac Tromethamine (Toradol Inj) 30 mg NOW STAT IV 03/26/17 21:40 03/26/17 21:42 DC 03/26/17 22:14 30 MG Diphenhydramine HCl (Benadryl Inj) 25 mg NOW STAT IV 03/26/17 21:40 03/26/17 21:42 DC 03/26/17 22:14 25 MG Prochlorperazine Edisylate (Compazine Inj) 5 mg NOW STAT IV 03/26/17 21:40 03/26/17 21:42 DC 03/26/17 22:14 5 MG Sodium Chloride 1,000 ml @ 999 mls/hr Q1H1M ONCE IV 03/26/17 21:45 03/26/17 22:45 DC 03/26/17 22:13 999 MLS/HR Magnesium Citrate (Citrate Of Magnesia Soln) 296 ml NOW ONCE PO 03/27/17 01:30 03/27/17 01:31 DC 03/27/17 01:34 296 ML ED Course Physical exam and history were performed. Nursing notes, EMR, and Medication List were personally reviewed. Patient appears to have abdominal pain for the past 1-2 weeks. IV access was established and labs were obtained. The patient was hydrated and medicated as above. CT with IV and oral contrast was performed. The patient blood work is as above and was reviewed. She does not have a significantly elevated white count, gross anemia, or significant electrolyte imbalance. Urine is without or infection. Drug of abuse was positive for Methadone. CT scan is as above and without significant findings, and may suggest constipation. Repeat abdominal exam shows the patient in no distress. She continues without a surgical abdomen clinically. Overall she appears well for discharge home. I suspect she is getting constipated from her methadone and we discussed options of care. She was given discharge instructions as below and rated her pain a 2/ 10 at departure. The chart was completed utilizing [employer] Speech Voice Recognition Software. Grammatical errors, random word insertions, pronoun errors, and incomplete sentences are an occasional consequence of this system due to software limitations, ambient noise, and hardware issues. Any formal questions or concerns about the content, text, or information contained within the body of this dictation should be directly addressed to the provider for clarification. . Medical Decision Differential diagnosis: Etiologies such as appendicitis, diverticulitis, PUD, biliary pathology, UTI, pancreatitis, obstruction, mesenteric ischemia, aortic pathology, infections, inflammatory bowel disease, renal colic, as well as others were entertained. Impression Primary Impression: Constipation Departure Information Dispostion Home / Self-Care Condition GOOD Forms Call Back Authorization, HOME CARE DOCUMENTATION FORM, IMPORTANT VISIT INFORMATION Patient Instructions My [facility] Additional Instructions You were seen and evaluated today on an emergency basis only. This is not a substitute for, or an effort to provide, complete comprehensive medical care. It is not possible to recognize and treat all injuries or illnesses in a single emergency department visit. For this reason it is recommended that you followup with your primary care physician for ongoing care and evaluation. Use magnesium citrate at home. This will help produce a bowel movement. We recommend you drink lots of water while taking this medication. Consider an [id number] stool softener such as Colace. Increase fiber in her diet to help pass stool more naturally. You are welcome to return to the emergency department anytime with new, worsening, or concerning symptoms.
== END 2017-03-27 01:36 | disposition home or self-care (01) ==
LOC: C.EDB 20:02 → C.EDC 03-27 01:36
DX: K59.00 Constipation, unspecified (principal); R11.2 Nausea with vomiting, unspecified; R10.9 Unspecified abdominal pain; Z79.899 Other long term (current) drug therapy; F17.200 Nicotine dependence, unspecified, uncomplicated; G25.81 Restless legs syndrome; Z88.5 Allergy status to narcotic agent

== ENCOUNTER 2017-04-08 09:45 | Emergency (ER) | payer OTHER ==
[~2017-04-08] VITALS: Ht 170.2 cm; Wt 73.0 kg
[~2017-04-08 09:45] MED LIST changes: -CITA10TA8 PO; +CITA40TA12 PO
[2017-04-08 09:59] VITALS: Ht 170.2 cm; Wt 73.0 kg
[2017-04-08] MEDS ORDERED: SODIUM CHLORIDE 0.9% 1000ML 1,000 ML IV STA ×2 (10:16→12:51)
[2017-04-08] MEDS ORDERED: RTL20 PO (10:23)
[2017-04-08] MEDS ORDERED: METH5TAB2 PO (10:23)
[2017-04-08 10:28] LABS: BASO % 0.1 %; BASO ABS # 0.01 K/uL (0-0.2); EOS % 2.2 %; EOS ABS # 0.25 K/uL (0-0.5); HEMATOCRIT 36.2 % (37-47); HEMOGLOBIN 12.3 g/dL (12.0-16.0); IG# 0.05 K/uL (0.00-0.02); LYMPH % 17.7 %; LYMPH ABS # 1.99 K/uL (1.2-3.4); MEAN CELL VOLUME 92.8 fL (80-100); MEAN CORPUSCULAR HEMOGLOBIN 31.5 pg (25-34); MEAN PLATELET VOLUME 9.2 fL (7.4-10.4); MONO % 6.9 %; MONO ABS # 0.78 K/uL (0.11-0.59); NEUT % 72.7 %; NEUT ABS # 8.17 K/uL (1.4-6.5); PLATELET COUNT 272 K/uL (130-400); RED CELL DISTRIBUTION WIDTH CV 12.3 % (11.5-14.5); RED CELL DISTRIBUTION WIDTH SD 41.7 fL (36.4-46.3); WHITE BLOOD COUNT 11.25 K/uL (4.8-10.8)
[2017-04-08 10:37] LABS: ALBUMIN 3.1 gm/dl (3.4-5.0); ALT/SGPT 15 U/L (12-78); BLOOD UREA NITROGEN 7 mg/dl (7-18); CALCIUM 8.5 mg/dl (8.5-10.1); CARBON DIOXIDE 26 mmol/L (21-32); CREATININE 0.81 mg/dl (0.60-1.20); GLUCOSE 103 mg/dl (70-99); POTASSIUM 3.9 mmol/L (3.5-5.1); SODIUM 136 mmol/L (136-145)
[2017-04-08 10:48] LABS: ALKALINE PHOSPHATASE 61 U/L (45-117); AST/SGOT 11 U/L (15-37); TOTAL PROTEIN 6.6 gm/dl (6.4-8.2)
--- NOTE | 2017-04-08 11:59 | DIAGNOSTIC IMAGING REPORT ---
RIGHT AXILLARY ULTRASOUND CLINICAL HISTORY: Right axillary edema and erythema. COMPARISON STUDY: Chest CT August 22, 2014. FINDINGS: Sonography of the right axilla demonstrated subcutaneous edema of the right axilla. Note was made of a 1.2 x 0.6 x 0.6 cm subcutaneous mixed echogenicity abnormality of the right axilla. This appears to contain minimal color flow. No additional abnormalities are identified on this exam. IMPRESSION: 1.2 cm mixed echogenicity subcutaneous abnormality of the right axilla. This is nonspecific and could reflect a lymph node with thickened cortex, small hematoma or small abscess. A follow-up ultrasound in one month is recommended. Electronically signed by: Abdiaziz Das M.D. 04/08/2017 11:58 AM Dictated Date/Time: 04/08/2017 11:49 AM
[2017-04-08] MEDS ORDERED: MECLIZINE HCL 25 MG TAB PO STA (12:51)
[2017-04-08 13:05] VITALS: O2SAT 96
[2017-04-08] MEDS ORDERED: SULF800T23 PO (14:03)
[2017-04-08] MEDS ORDERED: CEPH500C PO (14:03)
[2017-04-08 14:42] VITALS: BP 114/71; PULSE 82; O2SAT 98
--- NOTE | 2017-04-08 15:21 | EMERGENCY ROOM VISIT NOTE ---
History First contact with patient: 10:05 Chief Complaint: SYNCOPE Stated Complaint: SYNCOPE Nursing Triage Summary: pt here via [facility] from [facility], pt felt dizzy this am and then had syncopal event. pt states she was getting ready to leave to go to methadone clinic. states has not used street drugs in over a month. pt has erythema and swelling in right axilla area x a few days, painful per pt History of Present Illness The patient is a 36 year old female who presents to the Emergency Room with complaints of "syncope". The patient states that she was at her residence, when she passed out as was getting ready to go to the methadone clinic. She states that she does not remember fainting. There is no chest pain, shortness of breath, nausea, vomiting, abdominal pain, changes in her vision and there is no history of syncope. She notes she did hit her head, but not hard. She states that there is a family history of MT. She notes no recent drug use but does state that she is recovering. She also notes a painful lump under her right arm. She denies any chance of . Review of Systems A complete 10-point Review of Systems was discussed with the patient, with pertinent positives and negatives listed in the History of Present Illness. All remaining Review of Systems questions can be considered negative unless otherwise specified. Past Medical/Surgical History Medical Problems: (1) Diverticulitis (2) Kidney stone (3) kidney stone (4) Neuropathy (5) Restless legs syndrome (RLS) Surgical Problems: (1) Previous section Family History Cancer Diabetes mellitus Gallbladder disease Heart disease Hypertension Lung disease MS (multiple sclerosis) Seizures Social History Smoking Status: Current Every Day Smoker Alcohol Use: none Drug Use: other Housing Status: lives alone Occupation Status: unemployed Current/Historical Medications Scheduled Benztropine Mesylate (Cogentin), 0.5 MG PO BID Cephalexin Monohydrate (Keflex), 500 MG PO QID Citalopram (Citalopram Hydrobromide), 40 MG PO DAILY Citalopram Hydrobromide (Celexa), 40 MG PO DAILY Gabapentin (Gabapentin), 600 MG PO TID Levonorgestrel (Iud) (Mirena), 20 MCG IU UD Methadone Hcl (Dolophine), 23 MG PO DAILY Methylphenidate (Ritalin), 20 MG PO BID Multivitamins/Minerals (Mvi With Minerals), 1 TAB PO DAILY Promethazine HCl (Promethazine HCl), 25 MG PO Q4 Sulfa/Trimethoprim (Bactrim Ds 800MG/160MG), 1 TAB PO BID Zolpidem Tartrate (Zolpidem Tartrate), 10 MG PO HS Scheduled PRN Benztropine Mesylate (Benztropine Mesylate), 0.5 MG PO BID PRN for Hydroxyzine Pamoate (Vistaril), 50 MG PO TID PRN for Anxiety Ibuprofen (Advil), 400-600 MG PO Q6H PRN for Pain Allergies Coded Allergies: Morphine (Verified Allergy, Intermediate, Hives; pt tolerated hydromorphone in the past, 04/08/17) Aspirin (Verified Allergy, Unknown, Rash like welts, 04/08/17) Tramadol (Verified Allergy, Unknown, Does not feel well when taken., ) Physical Exam Vital Signs Date Time Temp Pulse Resp B/P (MAP) Pulse Ox O2 Delivery O2 Flow Rate FiO2 04/08/17 14:42 82 16 114/71 98 04/08/17 13:45 60 04/08/17 13:06 72 16 98 Room Air 04/08/17 13:05 96 Room Air 04/08/17 11:30 70 16 116/76 96 04/08/17 09:59 37.2 72 16 101/55 98 Room Air 04/08/17 09:59 64 16 106/66 70 110/65 95/69 04/08/17 09:53 74 Physical Exam VITAL SIGNS - Vital signs and nursing notes were reviewed.Stable. GENERAL - 36-year-old female appearing her stated age who is in no acute distress. Communicates well with provider and answers questions appropriately. SKIN - in the right axilla there is an erythematous region and is approximately 3 cm x 3 cm and is just beneath the surface but is clearly delineated upon palpation. It is tender. It is not fluctuant. It feels almost like an enlarged lymph node. HEAD - NC/AT. EYES - PERRL with EOMI bilaterally. Sclera anicteric. EARS - No deformities of external structures noted on gross examination bilaterally. No pain elicited with palpation of the tragus bilaterally. External auditory canals without discharge or otorrhea. Tympanic membranes pearly bhatti without retraction or bulging. No fluid or purulent material visualized behind the TM. Handle of malleus, umbo, cone of light, pars tensa/ flaccid all easily visualized. NOSE - Midline and without cyanosis. MOUTH/OROPHARYNX - Without perioral cyanosis LUNGS - Chest wall symmetric without accessory muscle use, intercostals retractions, or central cyanosis. Normal vesicular breath sounds CTA B/L. No wheezes, rales, or rhonchi appreciated. CARDIAC - RRR with S1/S2. No murmur, rubs, or gallops appreciated. EXTREMITIES - No clubbing or peripheral cyanosis. No pretibial edema present. +5 /5 strength noted in UE/LE bilaterally. NEUROLOGIC - Cranial nerves II through XII grossly intact. S PSYCH - A&O, and cooperates fully with examiner. Pt is very pleasant and interacts well with examiner. Medical Decision & Procedures ER Provider Diagnostic Interpretation: RIGHT AXILLARY ULTRASOUND CLINICAL HISTORY: Right axillary edema and erythema. COMPARISON STUDY: Chest CT August 22, 2014. FINDINGS: Sonography of the right axilla demonstrated subcutaneous edema of the right axilla. Note was made of a 1.2 x 0.6 x 0.6 cm subcutaneous mixed echogenicity abnormality of the right axilla. This appears to contain minimal color flow. No additional abnormalities are identified on this exam. IMPRESSION: 1.2 cm mixed echogenicity subcutaneous abnormality of the right axilla. This is nonspecific and could reflect a lymph node with thickened cortex, small hematoma or small abscess. A follow-up ultrasound in one month is recommended. Electronically signed by: Abdiaziz Das M.D. 04/08/2017 11:58 AM Dictated Date/Time: 04/08/2017 11:49 AM Laboratory Results 04/08/17 10:05 Red Blood Count 3.90, Mean Corpuscular Volume 92.8, Mean Corpuscular Hemoglobin 31.5, Mean Corpuscular Hemoglobin Concent 34.0, Mean Platelet Volume 9.2, Neutrophils (%) (Auto) 72.7, Lymphocytes (%) (Auto) 17.7, Monocytes (%) (Auto) 6.9, Eosinophils (%) (Auto) 2.2, Basophils (%) (Auto) 0.1, Neutrophils # (Auto) 8.17, Lymphocytes # (Auto) 1.99, Monocytes # (Auto) 0.78, Eosinophils # (Auto) 0.25, Basophils # (Auto) 0.01 04/08/17 10:05 Test 04/08/17 10:05 04/08/17 13:17 White Blood Count 11.25 K/uL (4.8-10.8) Red Blood Count 3.90 M/uL (4.2-5.4) Hemoglobin 12.3 g/dL (12.0-16.0) Hematocrit 36.2 % (37-47) Mean Corpuscular Volume 92.8 fL (80-100) Mean Corpuscular Hemoglobin 31.5 pg (25-34) Mean Corpuscular Hemoglobin Concent 34.0 g/dl (32-36) Platelet Count 272 K/uL (130-400) Mean Platelet Volume 9.2 fL (7.4-10.4) Neutrophils (%) (Auto) 72.7 % Lymphocytes (%) (Auto) 17.7 % Monocytes (%) (Auto) 6.9 % Eosinophils (%) (Auto) 2.2 % Basophils (%) (Auto) 0.1 % Neutrophils # (Auto) 8.17 K/uL (1.4-6.5) Lymphocytes # (Auto) 1.99 K/uL (1.2-3.4) Monocytes # (Auto) 0.78 K/uL (0.11-0.59) Eosinophils # (Auto) 0.25 K/uL (0-0.5) Basophils # (Auto) 0.01 K/uL (0-0.2) RDW Standard Deviation 41.7 fL (36.4-46.3) RDW Coefficient of Variation 12.3 % (11.5-14.5) Immature Granulocyte % (Auto) 0.4 % Immature Granulocyte # (Auto) 0.05 K/uL (0.00-0.02) Anion Gap 6.0 mmol/L (3-11) Est Creatinine Clear Calc Drug Dose 91.6 ml/min Estimated GFR () 106.8 Estimated GFR (Non- 92.1 BUN/Creatinine Ratio 8.8 (10-20) Calcium Level 8.5 mg/dl (8.5-10.1) Magnesium Level 1.9 mg/dl (1.8-2.4) Total Bilirubin 0.4 mg/dl (0.2-1) Aspartate Amino Transf (AST/SGOT) 11 U/L (15-37) Alanine Aminotransferase (ALT/SGPT) 15 U/L (12-78) Alkaline Phosphatase 61 U/L (45-117) Troponin I < 0.015 ng/ml (0-0.045) Total Protein 6.6 gm/dl (6.4-8.2) Albumin 3.1 gm/dl (3.4-5.0) Globulin 3.5 gm/dl (2.5-4.0) Albumin/Globulin Ratio 0.9 (0.9-2) Thyroid Stimulating Hormone (TSH) 0.940 uIu/ml (0.300-4.500) Urine Color YELLOW Urine Appearance CLOUDY (CLEAR) Urine pH 8.5 (4.5-7.5) Urine Specific [place] 1.007 (1.000-1.030) Urine Protein NEG (NEG) Urine Glucose (UA) NEG (NEG) Urine Ketones NEG (NEG) Urine Occult Blood NEG (NEG) Urine Nitrite NEG (NEG) Urine Bilirubin NEG (NEG) Urine Urobilinogen NEG (NEG) Urine Leukocyte Esterase NEG (NEG) Urine WBC (Auto) 10-30 /hpf (0-5) Urine RBC (Auto) 0-4 /hpf (0-4) Urine Hyaline Casts (Auto) 1-5 /lpf (0-5) Urine Epithelial Cells (Auto) >30 /lpf (0-5) Urine Bacteria (Auto) 2+ (NEG) Urine Test NEG (NEG) Urine Opiates Screen NEG (NEG) Urine Methadone, Qualitative NEG (NEG) Urine Barbiturates NEG (NEG) Urine Phencyclidine (PCP) Level NEG (NEG) Ur Amphetamine/Methamphetamine NEG (NEG) MDMA (Ecstasy) Screen NEG (NEG) Urine Benzodiazepines Screen NEG (NEG) Urine Cocaine Metabolite NEG (NEG) Urine Marijuana (THC) NEG (NEG) Medications Administered Medications (Trade) Dose Ordered Sig/Raemsh Route Start Time Stop Time Status Last Admin Dose Admin Sodium Chloride 1,000 ml @ 999 mls/hr Q1H1M STAT IV 04/08/17 10:16 04/08/17 11:16 DC 04/08/17 10:40 999 MLS/HR Sodium Chloride 1,000 ml @ 999 mls/hr Q1H1M STAT IV 04/08/17 12:51 04/08/17 13:51 DC 04/08/17 12:51 999 MLS/HR Meclizine HCl (Antivert Tab) 25 mg NOW STAT PO 04/08/17 12:51 04/08/17 12:52 DC 04/08/17 13:05 25 MG Medical Decision Patient was seen and evaluated as above. She presents to us today status post syncopal event. She notes that she still feels dizzy. There is no extremity weakness, or numbness. No evidence of stroke upon my examination. At that EKG does reveal normal sinus rhythm, no evidence of ectopy or ischemic change. She is hemodynamically stable. CBC reveals small leukocytosis of 11.25, with hemoglobin of 12.3. Her blood cell 3.9. Chemistry panel reveals no evidence of kidney or liver failure. Troponin negative. TSH normal. Urine reveals elevated pH, 10-30 WBC, >30 epithelial cells, 2+ urine bacteria, and negative test. Negative urine drug screen. She was monitored here. She is resting comfortably upon my reevaluation numerous times. Ultrasound was obtained of the right axillary region as there is concern for potential small abscess. The ultrasound notes this could be a lymph node, which is the initial reason order the ultrasound to help delineate secondary to the vital structures in this region. Given this finding, and my clinical findings consistent with a possible lymph node/early abscess I will treat with Bactrim/Keflex and have the patient reevaluated in 2 days or return with worsening. She is to follow here with her family doctor. Given her minimal leukocytosis as possible that this could be a new infection however this could also be secondary to her syncopal event today. Regardless, she is nontoxic in appearance, and is seemingly medically stable. Being afebrile here in the emergency Department I favor that likely outpatient management is appropriate. In regard to her dizziness, she was given fluids here, and then was given another liter for total of 2 L of normal saline as well as meclizine. She is reevaluated after this and was feeling much better. She is stable for outpatient management. She was educated upon management, educated upon worrisome symptoms in which to return, had questions about discharge, and was discharged home in good condition. Case was discussed with the attending physician. I favor that the patient is likely experiencing/has experienced a vasovagal event. In evaluation treatment this patient following differential diagnoses were entertained: MT, PE, postural hypotension, vasovagal event, CVA, among others. Impression Primary Impression: Syncope Additional Impression: Cellulitis of axilla, right Departure Information Dispostion Home / Self-Care Condition GOOD Prescriptions Sulfa/Trimethoprim (Bactrim Ds 800MG/160MG) Tab 1 TAB PO BID for 10 Days, #20 TAB Prov: Bryson Anaya PA-C 04/08/17 Cephalexin Monohydrate (Keflex) 500 Mg Cap 500 MG PO QID for 10 Days, #40 CAP Prov: Bryson Anaya PA-C 04/08/17 Referrals Marcelo Berkowitz M.D. (PCP) Patient Instructions My [facility] Additional Instructions You were seen in the emergency department for syncope. At this time there is no emergent cause found. I recommend following with your family doctor for further evaluation and management of her dizziness. Please stay well hydrated. Please take the Keflex and Bactrim as prescribed for the skin infection in your right arm. This will be Keflex 500 mg every 6 hours for 10 days. The Bactrim will be 1 tablet every 12 hours for 10 days. This region in your right arm pit will need to be reevaluated by someone in 2 days. Please follow up either by returning here or with her family doctor. Please return with any new/concerning symptoms Problem Qualifiers
== END 2017-04-08 14:43 | disposition home or self-care (01) ==
LOC: EDBD 09:45 → C.EDB 10:13
DX: R55 Syncope and collapse (principal); L03.111 Cellulitis of right axilla; G62.9 Polyneuropathy, unspecified; G25.81 Restless legs syndrome; F17.200 Nicotine dependence, unspecified, uncomplicated; Z82.49 Family history of ischemic heart disease and other diseases of the circulatory system; Z80.9 Family history of malignant neoplasm, unspecified; Z83.3 Family history of diabetes mellitus; Z83.79 Family history of other diseases of the digestive system; Z82.0 Family history of epilepsy and other diseases of the nervous system

== ENCOUNTER 2017-04-09 23:19 | Emergency (ER) | payer OTHER ==
[~2017-04-09] VITALS: Ht 170.2 cm; Wt 75.3 kg
[~2017-04-09 23:19] MED LIST changes: +CEPH500C PO; -METH10CO11 PO; +METH5TAB2 PO; -PPTBS PO; -RTL10 PO; +RTL20 PO; +SULF800T23 PO
[2017-04-09 23:31] VITALS: TEMP 37; Ht 170.2 cm; Wt 75.3 kg
[2017-04-10] MEDS ORDERED: SULF800T23 PO (00:14)
[2017-04-10] MEDS ORDERED: CEPH500C PO (00:14)
[2017-04-10] MEDS ORDERED: LORAZEPAM 1 MG TAB PO STA (00:24)
[2017-04-10] MEDS ORDERED: XYLOCAINE 1%/SOD BICARB 20 ML VIAL INFIL ONE (00:30)
[2017-04-10] MEDS ORDERED: NORCO 5/325MG HOME PACK PO ONE (03:15)
[2017-04-10 03:22] VITALS: BP 104/64; PULSE 61; O2SAT 97
--- NOTE | 2017-04-10 21:51 | EMERGENCY ROOM VISIT NOTE ---
History First contact with patient: 00:17 Chief Complaint: OTHER COMPLAINT Stated Complaint: PAINFUL LUMP UNDER RT ARM, BLURRED VISION History of Present Illness The patient is a 36 year old female who presents to the Emergency Room with complaints of worsening painful lumps in her right armpit. The patient was seen and evaluated yesterday with this complaint, and had blood work and ultrasound performed. Her ultrasound showed a roughly 1 cm possible lymph node versus abscess. She was placed on Bactrim and Keflex, and states that she is taking these antibiotics as prescribed. She states her symptoms worsened over the course of the past 24 hours, and now she has multiple sore lump in the arm. She has not had or chills. No nausea or vomiting. She rates her discomfort a 9/10. Review of Systems More than 10 systems were reviewed and otherwise negative with the exception of history of present illness. Past Medical/Surgical History Medical Problems: (1) Diverticulitis (2) Kidney stone (3) kidney stone (4) Neuropathy (5) Restless legs syndrome (RLS) Surgical Problems: (1) Previous section Family History Cancer Diabetes mellitus Gallbladder disease Heart disease Hypertension Lung disease MS (multiple sclerosis) Seizures Social History Smoking Status: Current Every Day Smoker Alcohol Use: none Drug Use: other Housing Status: lives alone Occupation Status: unemployed Current/Historical Medications Scheduled Benztropine Mesylate (Cogentin), 0.5 MG PO BID Cephalexin Monohydrate (Keflex), 500 MG PO QID Citalopram Hydrobromide (Celexa), 40 MG PO DAILY Gabapentin (Gabapentin), 600 MG PO TID Levonorgestrel (Iud) (Mirena), 20 MCG IU UD Methadone Hcl (Dolophine), 23 MG PO DAILY Methylphenidate (Ritalin), 20 MG PO BID Multivitamins/Minerals (Mvi With Minerals), 1 TAB PO DAILY Sulfa/Trimethoprim (Bactrim Ds 800MG/160MG), 1 TAB PO BID Zolpidem Tartrate (Zolpidem Tartrate), 10 MG PO HS Scheduled PRN Benztropine Mesylate (Benztropine Mesylate), 0.5 MG PO BID PRN for Hydroxyzine Pamoate (Vistaril), 50 MG PO TID PRN for Anxiety Ibuprofen (Advil), 400-600 MG PO Q6H PRN for Pain Promethazine HCl (Promethazine HCl), 25 MG PO Q4 PRN for Nausea or Vomiting Physical Exam Vital Signs Date Time Temp Pulse Resp B/P (MAP) Pulse Ox O2 Delivery O2 Flow Rate FiO2 04/10/17 03:22 61 18 104/64 97 Room Air 04/10/17 01:31 62 18 102/64 97 Room Air 04/09/17 23:31 37.0 75 18 111/67 96 Room Air Physical Exam VITALS: Vitals are noted on the nurse's note and reviewed by myself. Vital signs stable. GENERAL: Well-developed, well-nourished, white female who appears uncomfortable on examination. HEART: Regular rate and rhythm without murmurs gallops or rubs. LUNGS: Clear to auscultation bilaterally without wheezes, rales or rhonchi. No retractions or accessory muscle use. SKIN: The skin was with 4 small abscesses in the right axilla. The largest measures approximately 2 x 2 centimeter in dimension. Each of these appears to be fluctuant. Medical Decision & Procedures Medications Administered Medications (Trade) Dose Ordered Sig/Ramesh Route Start Time Stop Time Status Last Admin Dose Admin Lorazepam (Ativan Tab) 1 mg NOW STAT PO 04/10/17 00:24 04/10/17 00:25 DC 04/10/17 00:48 1 MG Lidocaine HCl (Buffered Lidocaine 1% Inj) 20 ml NOW ONCE INFIL 04/10/17 00:30 04/10/17 00:31 DC 04/10/17 00:48 20 ML Procedure I examined the patient. Verbal consent was obtained to perform the procedure. After saline and Betadine cleansing and 7 mL of 1% buffered lidocaine anesthesia , the abscesses were incised with a number 11 scalpel blade. A large amount of purulent material was released with more expressed by pressure. A swab was obtained for culture. The abscess cavities were further probed with a needle cpr ambulance driver and the deep pocket expressed. The abscess cavities were then copiously irrigated with sterile saline under pressure. The 2 largest, the most superior , and most inferior abscesses were then packed with bacitracin soaked packing. The area was cleaned with sterile saline and dressed with bacitracin and a bulky bandage. The patient tolerated the procedure well. ED Course Physical exam and history were performed. Nursing notes, EMR, and Medication List were personally reviewed. Patient appears to have multiple abscesses in the right axilla. The patient had blood work and ultrasound performed yesterday, and is currently on Bactrim and Keflex. Her symptoms appear to be distinctly worse today. She unquestionably has abscesses on examination that are fluctuant. I discussed options of care with the patient, and we elected to perform incision and drainage. She was given a dose of Ativan prior to the procedure. This was performed as above and the patient tolerated the procedure well. Packing was placed in the largest abscesses, the most superior, and the most inferior. The middle 2 abscesses are very small, each subcentimeter in size, and packing was not possible. Overall the patient appears well at discharge home. She is to continue the Bactrim and Keflex pending culture. I asked her to follow up either with her primary care physician or back in the ER in 2-3 days for a recheck and packing removal. She is to return sooner if symptoms worsen. She voiced understanding and rated her discomfort a 3/10. Temperature. The chart was completed utilizing [employer] Speech Voice Recognition Software. Grammatical errors, random word insertions, pronoun errors, and incomplete sentences are an occasional consequence of this system due to software limitations, ambient noise, and hardware issues. Any formal questions or concerns about the content, text, or information contained within the body of this dictation should be directly addressed to the provider for clarification. . Medical Decision Differential diagnosis: Etiologies such as cellulitis, abscess, MRSA infection, DVT, necrotizing fasciitis, dermatitis, drug eruption, as well as others were entertained.. Impression Primary Impression: Abscess of multiple sites Departure Information Dispostion Home / Self-Care Condition GOOD Forms HOME CARE DOCUMENTATION FORM, IMPORTANT VISIT INFORMATION Patient Instructions My [facility] Additional Instructions You were seen and evaluated today on an emergency basis only. This is not a substitute for, or an effort to provide, complete comprehensive medical care. It is not possible to recognize and treat all injuries or illnesses in a single emergency department visit. For this reason it is recommended that you followup with your primary care physician or back in the emergency department in 48-36 hours for recheck of your condition. Continue your antibiotics as previously prescribed. For baseline pain relief you may alternate ibuprofen and acetaminophen every 4 hours for pain control. Take 600 mg ibuprofen (Advil) and then 4 hours later take 1000 mg acetaminophen (Tylenol). Do not take more than 3000 mg acetaminophen in a single day. [place] (hydrocodone/acetaminophen) 5/325 mg every 6 hours as needed for worsening breakthrough pain. Do not drink or drive on [place]. This medication will likely make you tired. Do not take [place] and Tylenol at the same time as both contain acetaminophen. [place] may cause constipation. You may wish to take an [id number] stool softener like Colace if this occurs. Try to keep your wound packing material in place until your recheck You are welcome to return to the emergency department anytime with new, worsening, or concerning symptoms.
== END 2017-04-10 03:27 | disposition home or self-care (01) ==
LOC: C.EDB 23:20
DX: L02.411 Cutaneous abscess of right axilla (principal); Z87.442 Personal history of urinary calculi; G62.9 Polyneuropathy, unspecified; G25.81 Restless legs syndrome; Z80.9 Family history of malignant neoplasm, unspecified; Z83.3 Family history of diabetes mellitus; Z82.49 Family history of ischemic heart disease and other diseases of the circulatory system; Z82.0 Family history of epilepsy and other diseases of the nervous system; F17.210 Nicotine dependence, cigarettes, uncomplicated; Z79.899 Other long term (current) drug therapy